=== PATIENT | male | born 1980 | race Caucasian/White ===

== ENCOUNTER 2020-07-06 08:22 | Inpatient (IN) ==
--- NOTE | 2020-06-21 14:13 | PAT Medication Instructions ---
Medication Instructions Date of Service June 21, 2020 Home Medications albuterol sulfate 1 inh INHALATION Q4H PRN esomeprazole magnesium [Nexium] 40 mg PO QAM sertraline [Zoloft] 150 mg PO QAM Take morning of surgery With a small sip of water, OTHERWISE NOTHING TO EAT OR DRINK AFTER MIDNIGHT: albuterol sulfate 1 inh INHALATION Q4H PRN (use if needed; please bring rescue inhaler with you to hospital day of surgery if possible) esomeprazole magnesium [Nexium] 40 mg PO QAM sertraline [Zoloft] 150 mg PO QAM Take evening before surgery albuterol sulfate 1 inh INHALATION Q4H PRN (if needed) Other Notes If you have any questions please call us at [phone] or [phone] or [phone] or [phone]
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
[2020-06-22 11:39] LABS: Basophils # (auto) 0.02 K/uL (0-0.2); Basophils % (auto) 0.3 %; Eosinophils # (auto) 0.12 K/uL (0-0.5); Eosinophils % (auto) 1.6 %; Hematocrit (blood only) 44.7 % (42-52); Hemoglobin 16.1 g/dL (14.0-18.0); Immature Granulocytes # (auto) 0.05 K/uL (0.00-0.02); Immature Granulocytes % (auto) 0.7 %; Lymphocytes # (auto) 1.73 K/uL (1.2-3.4); Lymphocytes % (auto) 23.3 %; Mean Corpuscular Hemoglobin 31.9 pg (25-34); Mean Corpuscular Volume 88.5 fL (80-100); Mean Platelet Volume 11.8 fL (7.4-10.4); Monocytes # (auto) 0.54 K/uL (0.11-0.59); Monocytes % (auto) 7.3 %; Neutrophils # (auto) 4.97 K/uL (1.4-6.5); Neutrophils % (auto) 66.8 %; Platelet Count 192 K/uL (130-400); RDW Coefficient of Variation 13.4 % (11.5-14.5); RDW Standard Deviation 42.9 fL (36.4-46.3); Red Blood Count 5.05 M/uL (4.7-6.1); White Blood Count 7.43 K/uL (4.8-10.8)
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
[2020-06-22 11:49] LABS: Appearance Urine Clear (Clear); Bilirubin Urine Negative (Negative); Blood Urine Negative (Negative); Color Urine Dark Yellow; Glucose Urine UA Negative (Negative); Ketones Urine Trace (Negative); Leukocyte Esterase Urine Negative (Negative); Nitrite Urine Negative (Negative); Protein Urine Negative (Negative); Urobilinogen Urine Negative (Negative); pH Urine 5.5 (4.5-7.5)
[2020-06-22 11:54] LABS: Partial Thromboplastin Time 25.8 Seconds (21.0-31.0); Prothrombin Time 10.6 Seconds (9.0-12.0)
[2020-06-22 14:05] LABS: BUN Creatinine Ratio 9.4 (10-20); Calcium 9.7 mg/dl (8.5-10.1); Creatinine Clr Calc Pharmacy 131.4 ml/min; Est GFR (African American) 88.9; Est GFR (Non-African American) 76.7; Potassium 4.7 mmol/L (3.5-5.1)
--- NOTE | 2020-06-23 06:24 | Electrocardiogram Report ---
Test Reason : Blood Pressure : / mmHG Vent. Rate : 065 BPM Atrial Rate : 065 BPM P-R Int : 176 ms QRS Dur : 086 ms QT Int : 362 ms P-R-T Axes : 050 071 045 degrees QTc Int : 376 ms Normal sinus rhythm Normal ECG No previous ECGs available Confirmed by Jonah Caraballo ([id number]) on 06/23/2020 6:23:42 AM Referred By: Michael Alvares Confirmed By:Jonah Caraballo
[~2020-07-06 08:22] MED LIST: ACETAMINOPHEN 500 MG TAB PO SCH; CLINDAMYCIN 600 MG/54 ML BAG IV SCH; GABAPENTIN 900 MG DOSE PO SCH; LR 15ML/HR IV SCH; SUGAMMADEX SODIUM 200 MG/2 ML VIAL IV ONE
[2020-07-06] MEDS ORDERED: ONDANSETRON INJ 2 MG/ML 2 ML VIAL ONE (09:23)
[2020-07-06] MEDS ORDERED: NEOSTIGMINE METHYLSULFATE 1 MG/ML 10ML VIAL ONE (09:23)
[2020-07-06] MEDS ORDERED: PROPOFOL IV EMULSION 10 MG/ML 20 ML VIAL IV ONE (09:23)
[2020-07-06] MEDS ORDERED: fentaNYL citrate 100 MCG/2 ML VIAL ONE (09:23)
[2020-07-06] MEDS ORDERED: MIDAZOLAM HCL 1 MG/ML 2ML VIAL ONE (09:23)
[2020-07-06] MEDS ORDERED: GLYCOPYRROLATE 0.2 MG/ML VIAL ONE (09:23)
[2020-07-06] MEDS ORDERED: LIDOCAINE HCL 2% 2 ML VIAL/AMP(20MG/ML) INFIL ONE (09:23)
[2020-07-06] MEDS ORDERED: DEXAMETHASONE SOD INJ 4 MG/ML VIAL ONE (09:23)
[2020-07-06] MEDS ORDERED: ROCURONIUM BROMIDE 10 MG/ML 5 ML VIAL IV ONE (09:25)
[2020-07-06] MEDS ORDERED: SUCCINYLCHOLINE CHLORIDE 20 MG/ML 10 ML VIAL IV ONE (09:25)
--- NOTE | 2020-07-06 09:32 | History & Physical Bridge Note ---
Date of Service July 06, 2020 History & Physical Bridge Note I have examined the patient, reviewed the History & Physical and in the interval since the performance of the History & Physical I have noted the following changes of clinical significance: no changes noted
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
[2020-07-06] MEDS ORDERED: PROMETHAZINE HCL 6.25 MG in SODIUM CHLORIDE 0.9% 50 ML IV PRN (09:49)
[2020-07-06] MEDS ORDERED: ePHEDrine sulfate 50 MG/ML AMP IV PRN (09:49)
[2020-07-06] MEDS ORDERED: fentaNYL citrate 100 MCG/2 ML VIAL IV PRN (09:49)
[2020-07-06] MEDS ORDERED: ATROPINE SULFATE 0.1 MG/ML 10ML SYR IV PRN (09:49)
[2020-07-06] MEDS ORDERED: HYDROmorphone INJ 2 MG/ML SYR/VIAL IV PRN (09:49)
[2020-07-06] MEDS ORDERED: ONDANSETRON INJ 2 MG/ML 2 ML VIAL IV PRN ×2 (09:49→13:54)
[2020-07-06] MEDS ORDERED: BUPIVACAINE 0.5 % 5 MG/1 ML MPF 30ML VIAL ONE (09:57)
[2020-07-06] MEDS ORDERED: KETAMINE 50 MG/5 ML SYRINGE ONE (10:28)
[2020-07-06] MEDS ORDERED: EPINEPHrine INJ 1 MG/ML AMP ONE (10:30)
[2020-07-06] MEDS ORDERED: HYDROmorphone INJ 2 MG/ML SYR/VIAL ONE (11:03)
[2020-07-06] MEDS ORDERED: ePHEDrine sulfate 50 MG/ML SYR ONE (11:20)
[2020-07-06] MEDS ORDERED: PHENYLEPHRINE 100MCG/ML 5ML SYR ONE ×2 (11:20)
--- NOTE | 2020-07-06 12:07 | Operative Report ---
Post Operative Report Pre & Post Diagnosis Operation Date: 07/06/20 10:05 Pre-Op Diagnosis: Recurrent lumbar disc herniation with radiculopathy Morbid obesity Post-Op Diagnosis: Same I identified the patient and participated in the time-out.: Yes Procedure Operation Date: 07/06/20 10:05 Actual Procedures p Spine L5-S1 Decompression/Fusion; Spinal Cord Monitoring(Not Applicable) - Michael Alvares DO Surgeon Michael Alvares DO Brand Marketing Intern Mansoor Rivera Estimated Blood Loss 100 Findings See Below Patient is 6 foot 3 inches tall weighing over 151 kg with a BMI in excess of 41. The patient's body habitus did contribute to significant technical difficulty requiring her deepest retractors and longus instruments in order to perform his procedure this added at least 50 to 50% increase to the operative time. Specimens None Indications This is a 40-year-old male presents with chronic persistent left leg pain. After failing course of nonoperative care is here for surgical invention. Description of Procedure Patient was met with identified informed consent obtained. Patient was then taken to the operative suite underwent an patient placed in a prone position Drew table top Bryon frame. All bony prominences well-padded eyes inspected to ensure no external pressure placed upon the. This point the lumbar spine was prepped and draped in a sterile fashion. Sharp dissection with the assistance of Bovie cautery was performed down to and exposing the remaining lamina and transverse processes of L5 and sacral ala bilaterally. I then performed a revision decompression with complete facetectomy and foraminotomy on the left acute to expose a severely compressed exiting L5 nerve root and traversing S1 nerve root. After complete decompression pedicle screws were placed in L5 and S1 levels bilaterally with assistance of fluoroscopy the proper sized norma placed. Explored the disc was completely calcified posteriorly. I was satisfied with the decompression however and elected to forego interbody fusion. Transverse processes of L5 and the superior bar then burred to subcortically bone. Infuse collagen sponge mass graft local autograft was placed in the posterior lateral gutters. 15 round MARIA LUISA drain inserted. The incision was then closed with 1 Vicryl to fascia 2-0 Vicryl subcutaneously and 4 Monocryl for final skin closure. Steri-Strip sterile dressings placed. Patient will continue PACU stable condition. Please note spinal cord monitoring was utilized at the procedure no changes noted. Lastly Mansoor Rivera was present at the entire surgery while the patient positioning complex portions of the surgery and final skin closure. I attest to the content of the Intraoperative Record and any orders documented therein. Any exceptions are noted below.
--- NOTE | 2020-07-06 12:25 | Fluoroscopy Report ---
FL lumbar spine 2-3V CLINICAL HISTORY: L5-S1 DECOMPRESSION COMPARISON STUDY: None. FLUOROSCOPY TIME: 27 seconds. FINDINGS: 2 fluoroscopic spot images of the lumbar spine demonstrate posterior decompression and fusi on at L5-S1 with pedicle screws and rods. Hardware appears intact. IMPRESSION: Fluoroscopy provided for L5-S1 posterior decompression and fusion ACT 112: Negative or not required by law. Electronically signed by: Roderick Espinoza M.D. 07/06/2020 12:24 PM
--- NOTE | 2020-07-06 13:19 | Anesthesiology Progress Note ---
Date of Service July 06, 2020 Anesthesia Post Procedure Vital Signs Vital Signs: Temp Pulse Resp BP BP Pulse Ox 07/06/20 13:10 78 18 145/89 H 93 07/06/20 13:00 80 20 144/82 H 93 07/06/20 12:50 82 16 139/82 93 07/06/20 12:40 92 H 15 138/71 93 07/06/20 12:37 36.8 C 87 15 148/90 H 93 07/06/20 08:50 36.8 C 70 18 123/67 96 Pain Intensity Lower Back: Pain Intensity: 7 Transfer of Care Handoff Completed per policy Notes Mental Status: alert / awake / arousable Patient Amnestic to Procedure: Yes Nausea / Vomiting: adequately controlled Pain: adequately controlled Airway Patency, RR, SpO2: stable & adequate BP & HR: stable & adequate Hydration State: stable & adequate Anesthetic Complications: no major complications apparent
[2020-07-06] MEDS: LACTATED RINGER'S 1,000 ML IV SCH ×2 (13:45→20:46)
[2020-07-06] MEDS ORDERED: PROMETHAZINE HCL 12.5 MG in SODIUM CHLORIDE 0.9% 50 ML IV PRN (13:54)
[2020-07-06] MEDS ORDERED: SOD PHOSPHATE/SOD BIPHOSPHATE ENEMA 132 ML BTL PR PRN (13:54)
[2020-07-06] MEDS ORDERED: LORazepam 0.5 MG/1 ML VIAL IV PRN (13:54)
[2020-07-06] MEDS ORDERED: DO NOT ADMINISTER FLU VACCINE PRN (13:54)
[2020-07-06] MEDS ORDERED: MAGNESIUM HYDROXIDE SUSP 30 ML UDC PO PRN (13:54)
[2020-07-06] MEDS ORDERED: ONDANSETRON 4 MG OD TAB PO PRN (13:54)
[2020-07-06] MEDS ORDERED: ALUMINUM/MAGNESIUM SUSP 30 ML UDC PO PRN (13:54)
[2020-07-06] MEDS ORDERED: FAMOTIDINE 20 MG TAB PO PRN (13:54)
[2020-07-06] MEDS ORDERED: diphenhydrAMINE Capsule 25 MG CAP PO PRN (13:54)
[2020-07-06] MEDS ORDERED: NALOXONE HCL 0.4 MG/1 ML VIAL/CARP IV PRN (13:54)
[2020-07-06] MEDS ORDERED: ACETAMINOPHEN 1,000 MG/100 ML VIAL IV PRN (13:54)
[2020-07-06] MEDS ORDERED: hydrOXYzine HCl 25 MG TAB PO PRN (13:54)
[2020-07-06] MEDS ORDERED: LORazepam 0.5 MG TAB PO PRN (13:54)
[2020-07-06] MEDS ORDERED: METOCLOPRAMIDE HCL INJ 5 MG/ML 2 ML VIAL IV PRN (13:54)
[2020-07-06] MEDS ORDERED: bisacodyL 10 MG SUPP PR PRN (13:54)
[2020-07-06] MEDS ORDERED: DO NOT ADMINISTER PNEUMOCOCCAL VACCINE PRN (13:54)
[2020-07-06] MEDS ORDERED: ACETAMINOPHEN 500 MG TAB PO PRN (13:54)
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
[2020-07-06] MEDS ORDERED: ALBUTEROL 0.083% NEBU SOLN 3 ML VIAL NEB PRN (14:53)
[2020-07-06] MEDS: KETOROLAC 30 MG/ML VIAL IV SCH ×2 (15:34→22:09)
[2020-07-06] MEDS: CLINDAMYCIN 600 MG in DEXTROSE 5% 50 ML IV SCH (17:59)
[2020-07-06] MEDS: oxyCODONE HCL IR 5 MG TAB (IMMEDIATE RELEASE) PO PRN (19:23)
[2020-07-06] MEDS: DOCUSATE SODIUM/SENNA 50/8.6MG TAB PO SCH (20:47)
[2020-07-07] MEDS: CLINDAMYCIN 600 MG in DEXTROSE 5% 50 ML IV SCH (01:39)
[2020-07-07] MEDS: oxyCODONE HCL IR 5 MG TAB (IMMEDIATE RELEASE) PO PRN ×5 (01:44→23:19)
[2020-07-07] MEDS: KETOROLAC 30 MG/ML VIAL IV SCH ×2 (04:59→09:59)
[2020-07-07] MEDS: POLYETHYLENE (MIRALAX) 17 GM PACK PO SCH ×4 (05:05→23:19)
[2020-07-07 06:12] LABS: Basophils # (auto) 0.01 K/uL (0-0.2); Basophils % (auto) 0.1 %; Eosinophils # (auto) 0.01 K/uL (0-0.5); Eosinophils % (auto) 0.1 %; Hematocrit (blood only) 37.2 % (42-52); Hemoglobin 12.8 g/dL (14.0-18.0); Immature Granulocytes # (auto) 0.05 K/uL (0.00-0.02); Immature Granulocytes % (auto) 0.4 %; Lymphocytes # (auto) 1.31 K/uL (1.2-3.4); Lymphocytes % (auto) 9.2 %; Mean Corpuscular Hgb Conc 34.4 g/dL (32-36); Mean Corpuscular Volume 90.1 fL (80-100); Mean Platelet Volume 10.8 fL (7.4-10.4); Monocytes # (auto) 1.01 K/uL (0.11-0.59); Monocytes % (auto) 7.1 %; Neutrophils # (auto) 11.86 K/uL (1.4-6.5); Neutrophils % (auto) 83.1 %; Platelet Count 156 K/uL (130-400); RDW Coefficient of Variation 13.7 % (11.5-14.5); RDW Standard Deviation 45.1 fL (36.4-46.3); Red Blood Count 4.13 M/uL (4.7-6.1); White Blood Count 14.25 K/uL (4.8-10.8)
[2020-07-07 06:27] LABS: BUN Creatinine Ratio 11.4 (10-20); Calcium 8.9 mg/dl (8.5-10.1); Creatinine Clr Calc Pharmacy 140.7 ml/min; Est GFR (African American) 96.8; Est GFR (Non-African American) 83.5; Potassium 4.2 mmol/L (3.5-5.1)
--- NOTE | 2020-07-07 08:17 | Orthopedic Progress Note ---
Date of Service July 07, 2020 Assessment & Plan (1) Status post lumbar surgery: We will start physical therapy today. Continue with pain control. DVT prophylaxis is in the form of teds and SCDs. Continue with aggressive bowel regimen. Anticipate discharge home within the next 24 to 48 hours. Admission and Anticipated Discharge Date Admission Date: July 06, 2020 Supervising Physician Co-Signing Physician Notes Dr. Michael Alvares Subjective Patient is postoperative day 1 revision decompression and fusion L5-S1. He has had an uneventful evening. Has lower back pain that is controlled with medication. Has bilateral lower extremity numbness that is established. MARIA LUISA drain output last shift was 135 cc. H&H is morning are 12.8 and 37.2 respectively. No other complaints. Review of Systems Review of Systems: All systems reviewed & are unremarkable except as noted in HPI & below Physical Exam Physical Exam: Alert and oriented x3 No acute distress Appears comfortable Lumbar dressing is clean dry and intact with functioning MARIA LUISA drain Motor testing is 5/5 bilaterally. Calves soft and nontender bilaterally Constitutional: WD/WN, vitals as above well developed Eyes: normal visual flores by confrontation ENMT: external ear and nose normal, oropharynx normal Neck: normal visual inspection Respiratory: normal respiratory effort Cardiovascular: Extremities: normal capillary refill Chest (Breasts): Chest: normal inspection of chest Gastrointestinal (Abdomen): Inspection/Auscultation: abdomen normal to inspection Musculoskeletal: no cyanosis or clubbing, extremities motor strength 5/5 Extremities: extremities normal to inspection and strength 5/5 throughout Skin: no rashes, warm and dry Neurologic: moves all extremities Psychiatric: A+Ox3, euthymic affect Eye Contact: good eye contact Results & Data ([facility]) Vital Signs (Past 12 Hours) Vital Signs Temp Pulse Pulse Resp BP Pulse Ox 07/07/20 07:33 97 07/07/20 07:17 36.5 C 68 16 123/79 94 07/07/20 03:41 36.9 C 67 20 106/71 92 07/06/20 22:35 36.5 C 71 20 112/66 95
[2020-07-07] MEDS: SERTRALINE HCL 50 MG TABLET PO SCH (08:47)
[2020-07-07] MEDS: PANTOprazole 40 MG TAB PO SCH (08:47)
--- NOTE | 2020-07-07 09:40 | Hospitalist Progress Note ---
Date of Service July 07, 2020 Assessment & Plan (1) Status post lumbar surgery: Post op day# 1 S/P L5-S1 decompression & fusion by Dr Dia VIDAL#100ml -pain management per ortho -wound management per ortho -PT/OT as appropriate -DVT prophylaxis per ortho -incentive spirometry -monitor H&H for acute blood loss anemia; pre-op Hgb: 16 (2) Anxiety: Depression -Continue Zoloft (3) Asthma: No sign exacerbation -Continue albuterol prn (4) GERD (gastroesophageal reflux disease): -Continue PPI (5) Morbid obesity: BMI: 41 -Lifestyle modifications recommended Acute post op blood loss anemia leukocytosis-Likely reactive DVT Prophylaxis -SCDs per ortho Labs Checked Follows with Dr Lm Venegas, [facility] for routine care. ROS-No Headache, No Visual Changes, No Nausea, No Vomiting, No Fever, No Chills, No Neck Pain or Stiffness, No Chest Pain, No Palpitations, No SOB, No SANDOVAL, No Cough, No Sputum, No Wheezing, No Abdominal Pain, No Diarrhea, No Hematemesis, No Hemoptysis, No Unexpected Weight Loss, No Flank pain, No Melena, No Hematochezia, No Frequency, No Urgency, No Burning, No Hematuria, No Rashes, No Diaphoresis. Appetite is Normal, Sore Back Physical Exam Gen-AAO x 3, NAD, Afebrile, Obese Head-NCAT, EOMI, PERRLA, Anicteric Sclera, No Posterior Pharyngeal Erythema Neck-Supple, No JVD, No Thyromegaly, No Masses, No LAD, No Bruits Lungs-Clear to Auscultation Bilaterally, No Rales, No Rhonchi, No Wheezing, No Crepitus Chest-No S4, +S1, +S2, No S3, No Murmurs, No Rubs, No Gallops, No Ectopy Abdomen-Soft, Bowel Sounds Present, Non Tender, Non Distended, No Hepatomegaly, No Splenomegaly, No Palpable Masses, No Rebound, No Rigidity, No Guarding Musculoskeletal-Full Range of Motion Bilaterally, No CVAT Extremities-No Cyanosis, No Clubbing, No Edema Nuero-Cranial Nerves II-XII grossly intact, Motor WNL, DTRs WNL, Strength WNL, Non Focal Psych-Normal Mood Admission and Anticipated Discharge Date Admission Date: July 06, 2020 Results & Data Results & Data ([facility]) Vital Signs (Past 12 Hours) Vital Signs Temp Pulse Pulse Resp BP Pulse Ox 07/07/20 07:33 97 07/07/20 07:17 36.5 C 68 16 123/79 94 07/07/20 03:41 36.9 C 67 20 106/71 92 07/06/20 22:35 36.5 C 71 20 112/66 95
[2020-07-07] MEDS: HYDROmorphone INJ 1 MG/ML SYRINGE IV PRN ×2 (13:13→19:20)
[2020-07-07] MEDS: DOCUSATE SODIUM/SENNA 50/8.6MG TAB PO SCH (21:07)
[2020-07-08] MEDS ORDERED: SODIUM CHLORIDE 0.9% 1000ML 1,000 ML IV SCH (01:15)
[2020-07-08] MEDS ORDERED: KETOROLAC TROMETHAMINE 15 MG/ML VIAL IV ONE (01:27)
[2020-07-08 01:41] LABS: Appearance Urine Clear (Clear); Bilirubin Urine Negative (Negative); Blood Urine Negative (Negative); Color Urine Yellow; Glucose Urine UA Negative (Negative); Ketones Urine Negative (Negative); Leukocyte Esterase Urine Negative (Negative); Nitrite Urine Negative (Negative); Protein Urine Negative (Negative); Specific Gravity Urine 1.009 (1.000-1.030); Urobilinogen Urine Negative (Negative)
[2020-07-08] MEDS: POLYETHYLENE (MIRALAX) 17 GM PACK PO SCH (05:13)
[2020-07-08 06:07] LABS: Hematocrit (blood only) 34.9 % (42-52); Mean Corpuscular Hemoglobin 31.2 pg (25-34); Mean Corpuscular Hgb Conc 34.4 g/dL (32-36); Mean Corpuscular Volume 90.6 fL (80-100); Mean Platelet Volume 11.4 fL (7.4-10.4); Platelet Count 143 K/uL (130-400); RDW Standard Deviation 46.2 fL (36.4-46.3); Red Blood Count 3.85 M/uL (4.7-6.1)
[2020-07-08 06:29] LABS: BUN Creatinine Ratio 13.8 (10-20); Calcium 8.5 mg/dl (8.5-10.1); Creatinine Clr Calc Pharmacy 147.4 ml/min; Est GFR (African American) 102.4; Est GFR (Non-African American) 88.4; Potassium 4.1 mmol/L (3.5-5.1)
[2020-07-08] MEDS: oxyCODONE HCL IR 5 MG TAB (IMMEDIATE RELEASE) PO PRN ×4 (06:32→23:34)
--- NOTE | 2020-07-08 08:14 | Orthopedic Progress Note ---
Date of Service July 08, 2020 Assessment & Plan (1) Lumbar disc herniation with radiculopathy: Patient is postoperative day 2 revision decompression fusion L5-S1 by Dr. Alvares. We will continue with physical therapy. Continue with pain control. Maintain MARIA LUISA drain. Continue on aggressive bowel regimen. Postoperative temperature overnight is most likely atelectasis. Incentive spirometery has been reviewed with the patient. If temperature continues today will order chest x-ray. Anticipate discharge home within the next 24 to 48 hours. Admission and Anticipated Discharge Date Admission Date: July 06, 2020 Supervising Physician Co-Signing Physician Notes Dr. Michael Alvares Subjective Patient has complaints of back pain. Seems to be adequately controlled. No change in lower extremity symptoms. MARIA LUISA drain output last shift was 30 cc. Yesterday in physical therapy ambulating roughly 400 feet. He is passing flatus but no bowel movement. Overnight he had a fever of 38.1. Currently afebrile. Review of Systems Review of Systems: All systems reviewed & are unremarkable except as noted in HPI & below Physical Exam Physical Exam: Alert and oriented x3 No acute distress Lumbar dressing is clean dry and intact with functioning MARIA LUISA drain Strength is 5/5 bilateral lower extremities Calves are soft nontender bilaterally Constitutional: WD/WN, vitals as above well developed Eyes: normal visual flores by confrontation ENMT: external ear and nose normal, oropharynx normal Neck: normal visual inspection Respiratory: normal respiratory effort Cardiovascular: Extremities: normal capillary refill Chest (Breasts): Chest: normal inspection of chest Gastrointestinal (Abdomen): Inspection/Auscultation: abdomen normal to inspection Musculoskeletal: no cyanosis or clubbing, extremities motor strength 5/5 Extremities: extremities normal to inspection and strength 5/5 throughout Skin: no rashes, warm and dry Neurologic: normal touch/pain/proprioception and moves all extremities Psychiatric: A+Ox3, euthymic affect Eye Contact: good eye contact Results & Data ([facility]) Vital Signs (Past 12 Hours) Vital Signs Temp Pulse Resp BP Pulse Ox 07/08/20 07:46 37.2 C 84 18 121/76 91 07/08/20 05:15 37.4 C 07/08/20 01:00 38.1 C H 07/07/20 22:44 37.8 C H 86 17 144/85 H 95
--- NOTE | 2020-07-08 08:24 | Hospitalist Progress Note ---
Date of Service July 08, 2020 Assessment & Plan (1) Status post lumbar surgery: Post op day#2 S/P L5-S1 decompression & fusion by Dr Dia VIDAL#100ml -pain management per ortho -wound management per ortho -PT/OT as appropriate -DVT prophylaxis per ortho -incentive spirometry re-emphasized Positive acute blood loss anemia; pre-op Hgb: 16, now 12 and stable Leukocytosis resolved (2) Anxiety: Depression -Continue Zoloft (3) Asthma: No sign exacerbation -Continue albuterol prn (4) GERD (gastroesophageal reflux disease): -Continue PPI (5) Morbid obesity: BMI: 41-Lifestyle modifications recommended Acute post op blood loss anemia, Hb stable today Leukocytosis-Likely reactive, resolved Aggressive IS Blood Cultures ordered for fever DVT Prophylaxis SCDs per ortho Labs Checked Follows with Dr Lm Venegas, [facility] for routine care. ROS-No Headache, No Visual Changes, No Nausea, No Vomiting, No Fever, No Chills, No Neck Pain or Stiffness, No Chest Pain, No Palpitations, No SOB, No SANDOVAL, No Cough, No Sputum, No Wheezing, No Abdominal Pain, No Diarrhea, No Hematemesis, No Hemoptysis, No Unexpected Weight Loss, No Flank pain, No Melena, No Hematochezia, No Frequency, No Urgency, No Burning, No Hematuria, No Rashes, No Diaphoresis. Appetite is Normal, Sore Back Physical Exam Gen-AAO x 3, NAD, febrile, Obese Head-NCAT, EOMI, PERRLA, Anicteric Sclera, No Posterior Pharyngeal Erythema Neck-Supple, No JVD, No Thyromegaly, No Masses, No LAD, No Bruits Lungs-Clear to Auscultation Bilaterally, No Rales, No Rhonchi, No Wheezing, No Crepitus Chest-No S4, +S1, +S2, No S3, No Murmurs, No Rubs, No Gallops, No Ectopy Abdomen-Soft, Bowel Sounds Present, Non Tender, Non Distended, No Hepatomegaly, No Splenomegaly, No Palpable Masses, No Rebound, No Rigidity, No Guarding Musculoskeletal-Full Range of Motion Bilaterally, No CVAT Extremities-No Cyanosis, No Clubbing, No Edema Nuero-Cranial Nerves II-XII grossly intact, Motor WNL, DTRs WNL, Strength WNL, Non Focal Psych-Normal Mood Admission and Anticipated Discharge Date Admission Date: July 06, 2020 Results & Data Results & Data ([facility]) Vital Signs (Past 12 Hours) Vital Signs Temp Pulse Resp BP Pulse Ox 07/08/20 07:46 37.2 C 84 18 121/76 91 07/08/20 05:15 37.4 C 07/08/20 01:00 38.1 C H 07/07/20 22:44 37.8 C H 86 17 144/85 H 95
[2020-07-08] MEDS: PANTOprazole 40 MG TAB PO SCH (08:25)
[2020-07-08] MEDS: SERTRALINE HCL 50 MG TABLET PO SCH (08:25)
[2020-07-08] MEDS: traMADol HCL 50 MG TABLET PO PRN ×2 (08:28→19:51)
[2020-07-08] MEDS: ALBUT/IPRATROP 3MG/0.5MG NEB 3 ML VIAL NEB SCH ×3 (11:42→19:55)
[2020-07-08] MEDS: HYDROmorphone INJ 1 MG/ML SYRINGE IV PRN ×2 (13:05→21:20)
[2020-07-08] MEDS: DOCUSATE SODIUM/SENNA 50/8.6MG TAB PO SCH (20:37)
[2020-07-09] MEDS: HYDROmorphone INJ 1 MG/ML SYRINGE IV PRN ×3 (02:38→14:08)
[2020-07-09 06:24] LABS: Hematocrit (blood only) 34.9 % (42-52); Hemoglobin 12.1 g/dL (14.0-18.0); Mean Corpuscular Hemoglobin 31.3 pg (25-34); Mean Corpuscular Hgb Conc 34.7 g/dL (32-36); Mean Corpuscular Volume 90.2 fL (80-100); Mean Platelet Volume 10.5 fL (7.4-10.4); Platelet Count 149 K/uL (130-400); RDW Coefficient of Variation 13.8 % (11.5-14.5); RDW Standard Deviation 45.7 fL (36.4-46.3); Red Blood Count 3.87 M/uL (4.7-6.1); White Blood Count 10.03 K/uL (4.8-10.8)
[2020-07-09] MEDS: oxyCODONE HCL IR 5 MG TAB (IMMEDIATE RELEASE) PO PRN ×3 (06:25→23:38)
[2020-07-09 06:56] LABS: BUN Creatinine Ratio 8.6 (10-20); Calcium 9.5 mg/dl (8.5-10.1); Creatinine Clr Calc Pharmacy 135.7 ml/min; Est GFR (African American) 92.7; Potassium 3.9 mmol/L (3.5-5.1)
[2020-07-09] MEDS: ALBUT/IPRATROP 3MG/0.5MG NEB 3 ML VIAL NEB SCH ×4 (07:56→19:34)
[2020-07-09] MEDS: PANTOprazole 40 MG TAB PO SCH (08:01)
[2020-07-09] MEDS: SERTRALINE HCL 50 MG TABLET PO SCH (08:01)
--- NOTE | 2020-07-09 09:25 | Discharge Summary ---
Date of Service July 09, 2020 Admission HPI Per Admitting Provider This is a 40-year-old male who presents with current persistent back and leg pain. Failing course of nonoperative care is here for surgical invention. Principal Diagnosis Lumbar spinal stenosis with radiculopathy Discharge Data Allergies Allergy/AdvReac Type Severity Reaction Status Date / Time celecoxib [From Celebrex] Allergy Severe Anaphylaxis Verified 07/06/20 08:55 Penicillins Allergy Intermediate rash, Verified 07/06/20 08:55 difficulty breathing acetaminophen AdvReac Unknown rash on arm Verified 07/06/20 08:55 [From Tylenol-Codeine] codeine AdvReac Unknown rash on arm Verified 07/06/20 08:55 [From Tylenol-Codeine] Consultations 07/06/20 13:54 Consult Hospitalist Routine Procedures Performed Operation Date: 07/06/20 10:05 Actual Procedures p Spine L5-S1 Decompression/Fusion; Spinal Cord Monitoring(Not Applicable) - Michael Alvares DO Ordered Studies 07/06/20 10:05 FL lumbar spine 2-3V Routine Hospital Course (1) Lumbar disc herniation with radiculopathy: Patient underwent revision decompression fusion tolerates well second orthopedic for postoperative. Postop day 1 is up with therapy progressed the postop day #2 on postop day #3 tolerated therapy MARIA LUISA drain decreasing probably. Good strength testing. Socially discharged home. Discharge orders and instructions found the chart for further review. Total Time Total Time Spent Total Time Spent (In Minutes): 20 minutes Discharge Plan Discharge Items Patient Disposition: Home - Self-Care Reason For Visit: Intervertebral Disc Disorders with Radiculopathy Discharge Diagnosis: Lumbar spinal stenosis with radiculopathy Activity: As commented below Non-emergency contact: Primary Care Provider Call non-emergency contact if: you have any medication questions Follow-up/Referrals: PCP,NO [Primary Care Provider] - Diet: Regular Addtl Attending Provider Instructions: ACTIVITY RECOMMENDATIONS: SELF CARE INSTRUCTIONS AFTER THORACIC/LUMBAR FUSIONS 1. You may walk to your tolerance. It is good exercise for your legs and back. Expect some back and intermittent leg aches and pains. 2. You may perform "counter-top" level activities (make a sandwich, joana with a project, etc.). 3. No bending or lifting of more than 10 pounds or back twisting of any nature (roll like a log when turning in bed). 4. You may ride in a car for 20-30 minutes at a time. No driving until after your first visit with your doctor. 5. Frequent changes of position and restricting sitting to 30 minutes at a time will help limit the amount of back spasms and stiffness you may experience. 6. You may discontinue the use of ambulatory aids (cane, crutches, etc.) once your strength and confidence allow. 7. You may information systems project manager the shower and let water strike your incision when you arrive home at least once daily. Do not take a tub bath, sit in a hot tub or go into a swimming pool until after your first recheck in the office. SPECIAL CARE INSTRUCTIONS: VERY IMPORTANT TO READ AND REVIEW A. Your surgical incision has been closed with a cosmetic suture under the skin that will dissolve in about 6 weeks. In 14 days, you can use a pair of clean scissors and cut the suture that is left outside of the skin at the ends of your incision. 1. The small skin tapes can be removed 7 days after surgery if they have not fallen off by that point. 2. You may keep the wound open to air as much as possible to promote healing after post-op day number 5 unless told otherwise by your doctor. 3. If you think the wound looks like it is becoming infected (redness or worsening drainage) and/or you are experiencing fever, chill or worsening back pain and muscle spasms, contact the office so that we may evaluate you as soon as possible. B. Complications are uncommon, but please contact us if you have any signs or symptoms of: 1. wound infection (fever higher than 102.5 degrees F, redness, separation of wound, drainage, or increasing pain from the incision) 2. blood clots in legs (pain, swelling, redness and warmth in legs) 3. urinary tract infection (fever higher than 102.5 degrees F, burning upon urination or increased frequency of urination) 4. nerve problems (inability to walk on your toes or heels, numbness, loss of bowel or bladder control) 5. any other symptoms that concern you C. Please call the office at if you have any concerns or questions about your operation or recovery. D. No smoking! Smoking drastically decreases the chance of a solid fusion. E. Do not take any anti-inflammatory medications (Indocin, Advil, Motrin, Aspirin, Naprosyn, etc.) as these may inhibit the chance of a solid fusion. Tylenol is okay to take for pain. MANAGING PAIN AFTER SPINAL SURGERY 1. Narcotic medication is intended for short-term use and will be provided for surgical pain. Surgical pain usually lasts for a period of 4-6 weeks. Narcotic medication includes Percocet, Vicodin, Darvocet, Tylenol #3 or Lortab. 2. Longer-term pain is more appropriately treated with non-narcotic medication such as Tylenol ES. 3. Muscle spasm is not appropriately treated with narcotics. Muscle relaxers such as Soma, Flexeril or Skelaxin can be used along with Tylenol ES. 4. Remember that we all live with some "aches and pains". This is not unusual or uncommon after an injury or as we get older. a. Back pain is expected and may include muscle spasms for 4 to 6 weeks after surgery. The pain should gradually improve. If the pain worsens for no apparent reason, please contact the office. b. Intermittent leg pain may also be experienced and should not be concerned about unless it worsens for no apparent reason. If so, please contact the office. 5. We will provide appropriate medication within the normal guidelines of their prescribed use. We will also be very cautious and aware of potential abuse and extended duration of patients' medication needs. a. Pain medications are for your comfort and to assist with sleep and rest so that the tissue can heal. They are not provided in order to return to normal activity and should not be used through the day. To do so or worsening pain at night can result from ongoing tissue damage and development of tolerance to the prescribed medicine. 6. Please allow 2-3 days to process refills. Prescriptions will not be mailed but must be picked up at the office. FOLLOW UP VISIT: Keep your scheduled follow-up appointment. Any questions, please call the office at . Pending Studies at Discharge: No Stand-Alone Forms: My zerved, Smoking Cessation Medications and DC Order Prescriptions: New tramadol 50 mg tablet 50 mg PO Q6H PRN (Reason: pain, moderate) Qty: 30 RF: 0 oxycodone 5 mg tablet 5 mg PO Q6H PRN (Reason: pain, severe) Qty: 30 RF: 0 Continued sertraline [Zoloft] 100 mg Tablet 150 mg PO QAM RF: 0 esomeprazole magnesium [Nexium] 40 mg Capsule,Delayed Release(Dr/Ec) 40 mg PO QAM RF: 0 albuterol sulfate 90 mcg/actuation Aero Powdr Breath Act W/Sensor 1 inh INHALATION Q4H PRN (Reason: sob) RF: 0 Discharge Orders: Discharge Order (Routine); Ordered 07/09/20 Ordered By: Michael Alvares Admission Data Admit Date/Time: 07/06/20 12:39 Attending Provider: Michael Alvares Admit Provider: Michael Alvares Primary Care Provider: PCP,NO Other Providers: Joe Ovalle
[2020-07-09] MEDS: traMADol HCL 50 MG TABLET PO PRN (11:17)
[2020-07-09] MEDS: ACETAMINOPHEN 500 MG TAB PO SCH ×3 (12:59→23:38)
[2020-07-09] MEDS: HYDROmorphone INJ 0.5 MG/0.5 ML SYR IV PRN (20:11)
[2020-07-09] MEDS: DOCUSATE SODIUM/SENNA 50/8.6MG TAB PO SCH (20:11)
[2020-07-10] MEDS: traMADol HCL 50 MG TABLET PO PRN (01:18)
[2020-07-10] MEDS: HYDROmorphone INJ 0.5 MG/0.5 ML SYR IV PRN ×2 (02:23→07:43)
[2020-07-10] MEDS: oxyCODONE HCL IR 5 MG TAB (IMMEDIATE RELEASE) PO PRN ×3 (05:11→14:42)
[2020-07-10] MEDS: ALBUT/IPRATROP 3MG/0.5MG NEB 3 ML VIAL NEB SCH ×3 (07:20→15:06)
[2020-07-10] MEDS: ACETAMINOPHEN 500 MG TAB PO SCH ×2 (07:44→12:39)
[2020-07-10] MEDS: PANTOprazole 40 MG TAB PO SCH (08:30)
[2020-07-10] MEDS: SERTRALINE HCL 50 MG TABLET PO SCH (08:30)
--- NOTE | 2020-07-10 11:22 | Hospitalist Progress Note ---
Date of Service July 10, 2020 Assessment & Plan (1) Status post lumbar surgery: Post op day#4 S/P L5-S1 decompression & fusion by Dr Dia VIDAL#100ml -pain management per ortho -wound management per ortho -PT/OT as appropriate -DVT prophylaxis per ortho -incentive spirometry re-emphasized Positive acute blood loss anemia; pre-op Hgb: 16, now 12 and stable Leukocytosis resolved Add Pamelor today and DC Ultram (2) Anxiety: Depression -Continue Zoloft (3) Asthma: No sign exacerbation -Continue albuterol prn (4) GERD (gastroesophageal reflux disease): -Continue PPI (5) Morbid obesity: BMI: 41-Lifestyle modifications recommended Acute post op blood loss anemia, Hb stable Leukocytosis-Likely reactive, resolved Aggressive IS Blood Cultures negative DVT Prophylaxis SCDs per ortho Labs Checked Follows with Dr Lm Venegas, [facility] for routine care. Pamelor Added 25 BID, Stop Ultram ROS-No Headache, No Visual Changes, No Nausea, No Vomiting, No Fever, No Chills, No Neck Pain or Stiffness, No Chest Pain, No Palpitations, No SOB, No SANDOVAL, No Cough, No Sputum, No Wheezing, No Abdominal Pain, No Diarrhea, No Hematemesis, No Hemoptysis, No Unexpected Weight Loss, No Flank pain, No Melena, No Hematochezia, No Frequency, No Urgency, No Burning, No Hematuria, No Rashes, + Diaphoresis. Appetite is Normal, Sore Back, c/o pain down his leg, can't get comfortable Physical Exam Gen-AAO x 3, NAD, febrile, Obese, Mod pain Head-NCAT, EOMI, PERRLA, Anicteric Sclera, No Posterior Pharyngeal Erythema Neck-Supple, No JVD, No Thyromegaly, No Masses, No LAD, No Bruits Lungs-Clear to Auscultation Bilaterally, No Rales, No Rhonchi, No Wheezing, No Crepitus Chest-No S4, +S1, +S2, No S3, No Murmurs, No Rubs, No Gallops, No Ectopy Abdomen-Soft, Bowel Sounds Present, Non Tender, Non Distended, No Hepatomegaly, No Splenomegaly, No Palpable Masses, No Rebound, No Rigidity, No Guarding Musculoskeletal-Full Range of Motion Bilaterally, No CVAT Extremities-No Cyanosis, No Clubbing, No Edema Nuero-Cranial Nerves II-XII grossly intact, Motor WNL, DTRs WNL, Strength WNL, Non Focal Psych-Normal Mood Admission and Anticipated Discharge Date Admission Date: July 06, 2020 Results & Data Results & Data ([facility]) Vital Signs (Past 12 Hours) Vital Signs Temp Pulse Pulse Resp BP BP Pulse Ox 07/10/20 11:01 80 18 94 07/10/20 07:21 80 16 94 07/10/20 07:20 37.1 C 80 16 111/68 94 07/10/20 02:00 90 112/68
[2020-07-10] MEDS ORDERED: NORTRIPTYLINE HCL 25 MG CAP PO SCH (11:30)
--- NOTE | 2020-07-10 15:01 | Orthopedic Progress Note ---
Date of Service July 10, 2020 Assessment & Plan (1) Lumbar disc herniation with radiculopathy: Admission and Anticipated Discharge Date Admission Date: July 06, 2020 At this time we will discharge patient home today. We will follow-up in the office as scheduled. Subjective Patient complaining of back pain. Legs pain stable. Physical Exam Physical Exam: Patient is good strength testing. Results & Data ([facility]) Vital Signs (Past 12 Hours) Vital Signs Temp Pulse Resp BP Pulse Ox 07/10/20 13:55 37.1 C 80 18 111/68 91 07/10/20 12:45 91 07/10/20 11:01 80 18 94 07/10/20 07:21 80 16 94 07/10/20 07:20 37.1 C 80 16 111/68 94
== END 2020-07-10 15:10 | disposition home or self-care (01) | DRG 460 ==
LOC: ASU 08:22 → 3E 12:39